=== PATIENT | male | born 1995 | race Asian ===

== ENCOUNTER 2021-05-06 20:07 | Emergency (ER) | payer BC, OTHER ==
[~2021-05-06] VITALS: Ht 170.2 cm; Wt 65.8 kg
[2021-05-06] MEDS ORDERED: ALUM & MAG HYDROX-SIMETH LIQ(MAALOX) 30 ML PO ONE (22:00)
[2021-05-06 22:10] VITALS: BP 150/97
== END 2021-05-06 22:51 | disposition home or self-care (01) ==
LOC: ER 20:10
DX: K21.9 Gastro-esophageal reflux disease without esophagitis (principal); F41.0 Panic disorder [episodic paroxysmal anxiety]; R14.2 Eructation
CPT/HCPCS: 93005